=== PATIENT | female | born 1945 | race Caucasian/White ===

== ENCOUNTER 2020-02-16 10:11 | Inpatient (IN) | payer MEDICARE ==
[~2020-02-16] VITALS: Ht 152.4 cm; Wt 86.6 kg
[2020-02-16] VITALS (7 sets, daily range): BP systolic 152–177; BP diastolic 37–132
[2020-02-16] MEDS ORDERED: TOPROL XL50 MG PO (10:24)
[2020-02-16] MEDS ORDERED: ESTRACE1 MG PO (10:24)
[2020-02-16] MEDS ORDERED: METOPROLOL SUC100 MG PO (10:25)
[2020-02-16] MEDS ORDERED: GLUCOPHAGE500 MG PO (10:25)
[2020-02-16] MEDS ORDERED: ZESTRIL20 MG PO (10:25)
[2020-02-16] MEDS ORDERED: ZOCOR20 MG PO (10:25)
[2020-02-16] MEDS ORDERED: NEURONTIN100 MG PO (10:25)
[2020-02-16] MEDS ORDERED: VITAMIN D21250 MCG PO (10:26)
[2020-02-16] MEDS ORDERED: ZYRTEC10 M4 PO (10:27)
[2020-02-16] MEDS ORDERED: FISH OIL 1,0001 EAC9 PO (10:27)
[2020-02-16] MEDS ORDERED: CHILDREN'S ASPI81 M1 PO (10:27)
[2020-02-16] MEDS ORDERED: DIUREX WATER P1 EACH PO (10:27)
[2020-02-16] MEDS ORDERED: VITAMIN B COMP1 EACH PO (10:27)
[2020-02-16] MEDS ORDERED: NEXIUM20 MG PO (10:27)
[2020-02-16] MEDS ORDERED: TURMERIC500 M2 PO (10:28)
[2020-02-16] MEDS ORDERED: MAG PO (10:29)
[2020-02-16] MEDS ORDERED: GLUCOSAMINE PO (10:29)
[2020-02-16] MEDS ORDERED: CHON PO (10:29)
[2020-02-16 10:43] LABS: ABSOLUTE BASOPHILS 0.1 thou/uL (0.0-0.2); ABSOLUTE EOSINOPHILS 0.3 thou/uL (0.0-0.7); ABSOLUTE LYMPHOCYTES 1.8 thou/uL (0.8-5.3); ABSOLUTE MONOCYTES 0.4 thou/uL (0.0-1.2); EOSINOPHILS 3.9 %; HEMATOCRIT 31.3 % (37.0-47.0); HEMOGLOBIN 10.9 gm/dL (12.0-15.0); LYMPHOCYTES 24.1 %; MCH 33.6 pg (26.0-34.0); MCHC 34.9 g/dL (28.0-37.0); MCV 96.3 fL (80.0-100.0); MONOCYTES 5.2 %; MPV 6.8 fl. (7.2-11.1); NUCLEATED RBCS 0 /100WBC; PLATELET COUNT* 292 thou/uL (150-400); POLYS 65.8 %; RBC 3.25 mil/uL (4.20-5.00); RDW-CV 12.7 % (10.5-14.5); WBC 7.6 thou/uL (4.0-11.0)
[2020-02-16 10:54] LABS: CALCIUM 8.8 mg/dL (8.5-10.1); CREATININE 1.4 mg/dL (0.6-1.3); POTASSIUM 4.5 mmol/L (3.5-5.1)
[2020-02-16 10:55] LABS: PROTIME 10.2 Seconds (9.20-11.50)
[2020-02-16 10:59] LABS: TOTAL BILIRUBIN 0.3 mg/dL (<0.1-1.0); TOTAL PROTEIN 7.2 g/dL (6.4-8.2)
--- NOTE | 2020-02-16 17:00 | 2DMMODE ---
[place] [address] 2 D/M-MODE ECHOCARDIOGRAM Name: SMITHAANTHONY E Room: [address] IN [facility]#: [id number] Admission: 02/16/20 Attend Phys: Arthur Harding, Discharge: Date of : 45 Date of Service: 02/16/20 1700 Report #: [id number] THIS REPORT FOR: cc: Max Cruz MD, Austin T. MD Liston, Michael J. MD [facility] ~ APPROVED REPORT Study performed: 02/16/2020 15:28:44 EXAM: Comprehensive 2D, Doppler, and color-flow Echocardiogram Patient Location: In-Patient Room #: [facility] Status: routine BSA: 1.81 HR: 71 bpm BP: 161/47 mmHg Rhythm: NSR Other Information Study Quality: Good Indications CVA/TIA Echo Enhancing Agent Indication: Rule out Shunt Agent(s) / Amount(s) Used: Agitated Saline 10 cc 2D Dimensions IVSd: 12.47 (7-11mm) LVOT Diam: 19.99 (18-24mm) LVDd: 45.98 mm PWd: 11.32 (7-11mm) Ascending Ao: 32.28 (22-36mm) LVDs: 26.76 (25-40mm) Aortic Root: 28.15 mm Volumes Left Atrial Volume (Systole) LA ESV Index: 36.70 mL/m2 Aortic Valve AoV Peak Giovani.: 1.68 m/s AO Peak Gr.: 11.25 mmHg LVOT Max P.48 mmHg AO Mean Gr.: 5.59 mmHg LVOT Mean P.46 [place] [address] 2 D/M-MODE ECHOCARDIOGRAM Name: ANTHONY BONE Room: [address] IN ..#: [id number] Admission: 02/16/20 Attend Phys: Arthur Harding, Discharge: Date of : 45 Date of Service: 02/16/20 1700 Report #: [id number] LVOT Max V: 1.17 m/s AO V2 VTI: 34.90 cm LVOT Mean V: 0.72 m/s ZABRINA (VTI): 2.31 cm2 LVOT V1 VTI: 25.64 cm AI Charles: 2.86 m/s2 AI PHT: 416.81 ms Mitral Valve E/A Ratio: 1.07 MV Decel. Time: 188.55 ms MV E Max Giovani.: 0.93 m/s MV PHT: 54.68 ms MVA (PHT): 4.02 cm2 TDI E/Lateral E': 7.75 E/Medial E': 10.33 Medial E' Goivani.: 0.09 m/s Lateral E' Giovani.: 0.12 m/s Pulmonary Valve PV Peak Giovani.: 0.81 m/s PV Peak Gr.: 2.62 mmHg Tricuspid Valve RAP Estimate: 5.00 mmHg TR Peak Gr.: 28.50 mmHg RVSP: 33.00 mmHg PA Pressure: 33.00 mmHg Left Ventricle The left ventricle is normal size. There is normal LV segmental wall motion. Mild concentric left ventricular hypertrophy. Left ventricular systolic function is normal. LVEF is 60-65%. Transmitral Doppler flow pattern suggests impaired LV relaxation. Right Ventricle The right ventricle is normal size. The right ventricular systolic function is normal. Atria Left atrium is mildly dilated. The interatrial septum is intact with no evidence for an atrial septal defect. The right atrium size is normal. Aortic Valve The aortic valve is normal in structure. Moderate aortic regurgitation. There is no aortic valvular stenosis[place] [address] 2 D/M-MODE ECHOCARDIOGRAM Name: ANTHONY BONE Room: [address] IN [facility]#: [id number] Admission: 02/16/20 Attend Phys: Arthur Harding, Discharge: Date of : 45 Date of Service: 02/16/20 1700 Report #: [id number] The mitral valve is normal in structure. Moderate mitral regurgitation. No evidence of mitral valve stenosis. Tricuspid Valve The tricuspid valve is normal in structure. Trace tricuspid regurgitation. The RVSP is 30-35 mmHg. Pulmonic Valve The pulmonary valve is normal in structure. There is no pulmonic valvular regurgitation. Great Vessels The aortic root is normal in size. IVC is normal in size and collapses >50% with inspiration. Pericardium There is no pericardial effusion. <Conclusion> The left ventricle is normal size. Mild concentric left ventricular hypertrophy. Left ventricular systolic function is normal. LVEF is 60-65%. Transmitral Doppler flow pattern suggests impaired LV relaxation. Left atrium is mildly dilated. Moderate aortic regurgitation. Moderate mitral regurgitation. Trace tricuspid regurgitation. The RVSP is 30-35 mmHg. IVC is normal in size and collapses >50% with inspiration. <ELECTRONICALLY SIGNED> By: Adiel Chaidez MD, FACC 02/16/201699 99 99 Adiel Chaidez MD, FACC /INF
--- NOTE | 2020-02-16 17:01 | EKG ---
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
--- NOTE | 2020-02-16 18:46 | CON ---
[address] [address] CONSULTATION Name: ANTHONY BONE Room: [address] IN M.R.#: [id number] Admission: 02/16/20 Attend Phys: Arthur Harding MD Discharge: Date of : 45 Report #: [id number] THIS REPORT FOR: //name// cc: Max Cruz MD, Austin T. MD ~ THIS REPORT FOR: //name// CC: Arthur Cruz DATE OF SERVICE: 02/16/2020 HISTORY OF PRESENT ILLNESS: This is a 74-year-old female patient who was seen by me to determine any neurological etiology for the patient's dizziness. She gives a history that dizziness started spontaneously. If she moves her neck, the dizziness is worse. She had another episode about 2 weeks ago with a similar dizziness. That is resolved by itself. She was supposed to have an MRI and MRA as an outpatient. REVIEW OF SYSTEMS: Positive for borderline diabetes and she takes metformin. She has a history of spastic colon. She denies any depression and anxiety, but some of the records indicates she does that. She has a history of tonsillectomy, , pneumonia, hysterectomy, bladder repair and question of migraine headache. She denies any stroke. She does not have any new eye, ENT, cardiac, respiratory, GI, , musculoskeletal, constitutional, dermatological, hematological, psychiatric, throat or allergic symptom associated with present symptomatology. PAST MEDICAL HISTORY: Positive for similar episode of dizziness. FAMILY HISTORY: Unremarkable. SOCIAL HISTORY: She does not drink any alcohol on a regular basis. PHYSICAL EXAMINATION: Indicate she is alert, responsive, able to follow simple and complex command. Her speech, concentration, fund of knowledge and memory is unremarkable. Cranial nerve examination 2-12 looks unremarkable. I could not have a good look at the patient's fundus. Her reflexes are somewhat diminished. Strength and sensation are symmetrical. Position sense is present. She says she feels touch somewhat different on the left side. Pulses are palpable. There is no edema, cyanosis or jaundice. Cardiorespiratory examination is unremarkable. Vision and hearing is adequate. Blood pressure is 161/47, respirations 17, pulse is 66, temperature is 98. LABORATORY DATA: White count is 7.6 and GFR is low [place] 37. [place] [address] CONSULTATION Name: ANTHONY BONE Room: [address]#: [id number] Admission: 02/16/20 Attend Phys: Arthur Harding MD Discharge: Date of : 45 Report #: [id number] IMPRESSION: This dizziness is most likely ENT in etiology. However, neurological etiology need to be excluded in this patient. We will check an MRI in this patient. If MRI shows some etiology for dizziness in the brain, we will treat accordingly otherwise, she will need an ENT physician to look at her, which unfortunately nobody comes here. I discussed all of it with the patient and she wants to follow this plan. Thank you very much for this referral. Dr. Sandoval will follow up this patient with you from tomorrow. <ELECTRONICALLY SIGNED> By: Vasyl Antoine MD 02/16/20 1846 [id number] [id number] Antoine MD /nt
[2020-02-17] VITALS: BP 135/45
[2020-02-17 03:06] LABS: GLYCOHEMOGLOBIN (HGB A1C) 5.6 % (4.8-5.6)
[2020-02-17 04:00] VITALS: BP 127/45
[2020-02-17 05:38] LABS: ABSOLUTE BASOPHILS 0.1 thou/uL (0.0-0.2); ABSOLUTE EOSINOPHILS 0.6 thou/uL (0.0-0.7); ABSOLUTE LYMPHOCYTES 2.8 thou/uL (0.8-5.3); ABSOLUTE MONOCYTES 0.5 thou/uL (0.0-1.2); ABSOLUTE NEUTROPHILS 4.3 thou/uL (1.6-8.1); BASOPHILS 0.8 %; EOSINOPHILS 6.8 %; HEMATOCRIT 26.9 % (37.0-47.0); HEMOGLOBIN 9.5 gm/dL (12.0-15.0); LYMPHOCYTES 34.4 %; MCH 33.8 pg (26.0-34.0); MCHC 35.3 g/dL (28.0-37.0); MCV 95.7 fL (80.0-100.0); MONOCYTES 6.6 %; MPV 6.7 fl. (7.2-11.1); NUCLEATED RBCS 0 /100WBC; PLATELET COUNT* 247 thou/uL (150-400); POLYS 51.4 %; RBC 2.82 mil/uL (4.20-5.00); RDW-CV 12.7 % (10.5-14.5); WBC 8.3 thou/uL (4.0-11.0)
[2020-02-17 06:07] LABS: ALBUMIN 2.5 g/dL (3.4-5.0); ALKALINE PHOSPHATASE 61 U/L (46-116); ANION GAP 5 mmol/L (7-16); BUN 18 mg/dL (7-18); CALCIUM 8.1 mg/dL (8.5-10.1); CHLORIDE 105 mmol/L (98-107); CHOLESTEROL 156 mg/dL (<200); CO2 27 mmol/L (21-32); CREATININE 1.3 mg/dL (0.6-1.3); GLUCOSE 100 mg/dL (70-99); HDL CHOLESTEROL 50 mg/dL (>40); LDL CHOLESTEROL 66 mg/dL (<100); POTASSIUM 4.3 mmol/L (3.5-5.1); SERUM ASSESSMENT Clear; SGOT 12 U/L (15-37); SGPT 14 U/L (30-65); SODIUM 137 mmol/L (136-145); TC:HDL 3.1 Ratio (Not establshd); TOTAL BILIRUBIN 0.3 mg/dL (<0.1-1.0); TOTAL PROTEIN 6.1 g/dL (6.4-8.2); TRIGLYCERIDE 202 mg/dL (<150); VLDL 40 mg/dL (<40)
[2020-02-17 08:23] VITALS: BP 194/62
[2020-02-17 12:00] VITALS: BP 116/65
[2020-02-17] MEDS ORDERED: TYLENOL PM EX-1 EACH PO (13:29)
[2020-02-17 16:00] VITALS: BP 148/50
[2020-02-17 20:29] VITALS: BP 148/43
[2020-02-18] VITALS (7 sets, daily range): BP systolic 106–145; BP diastolic 39–59
[2020-02-18 04:05] LABS: ABSOLUTE EOSINOPHILS 0.6 thou/uL (0.0-0.7); ABSOLUTE LYMPHOCYTES 3.6 thou/uL (0.8-5.3); ABSOLUTE MONOCYTES 0.6 thou/uL (0.0-1.2); ABSOLUTE NEUTROPHILS 3.5 thou/uL (1.6-8.1); BASOPHILS 0.3 %; EOSINOPHILS 7.6 %; HEMATOCRIT 26.6 % (37.0-47.0); HEMOGLOBIN 9.4 gm/dL (12.0-15.0); LYMPHOCYTES 42.9 %; MCHC 35.4 g/dL (28.0-37.0); MCV 95.9 fL (80.0-100.0); MONOCYTES 6.7 %; MPV 7.2 fl. (7.2-11.1); NUCLEATED RBCS 0 /100WBC; PLATELET COUNT* 252 thou/uL (150-400); POLYS 42.5 %; RBC 2.77 mil/uL (4.20-5.00); RDW-CV 12.7 % (10.5-14.5); WBC 8.3 thou/uL (4.0-11.0)
[2020-02-18 05:31] LABS: CALCIUM 8.3 mg/dL (8.5-10.1); CREATININE 1.4 mg/dL (0.6-1.3); POTASSIUM 4.2 mmol/L (3.5-5.1)
[2020-02-18 07:35] LABS: GLYCOHEMOGLOBIN (HGB A1C) 5.5 % (4.8-5.6)
[2020-02-18 17:34] LABS: URINE BILIRUBIN NEGATIVE (Negative); URINE BLOOD NEGATIVE (Negative); URINE CLARITY CLEAR; URINE COLOR YELLOW; URINE GLUCOSE-RANDOM NEGATIVE (Negative); URINE KETONES NEGATIVE (Negative); URINE LEUKOCYTES 2+ (Negative); URINE NITRITE NEGATIVE (Negative); URINE PROTEIN NEGATIVE (Negative); URINE UROBILINOGEN 0.2 E.U./dl (0.2-1.0)
[2020-02-18 17:40] LABS: SQUAMOUS >10 Many /LPF (0-3)
[2020-02-18 17:41] LABS: URINE WBC 6-15 Few /HPF (0-5)
[2020-02-18 17:42] LABS: BACTERIA >30 Many /HPF (None Seen); CASTS None Seen /LPF (None Seen); CRYSTALS None Seen /LPF (None Seen); MUCUS 0-3 Light strn/LPF (None Seen); URINE RBC 0-2 Rare /HPF (0-2)
[2020-02-19 01:10] VITALS: BP 109/43
[2020-02-19 04:00] VITALS: BP 114/34
[2020-02-19 08:00] VITALS: BP 155/62
[2020-02-19 12:59] VITALS: BP 139/40
[2020-02-19] MEDS ORDERED: LIPITOR40 MG PO (13:14)
[2020-02-19] MEDS ORDERED: ASPIRIN EC325 M1 PO (13:14)
[2020-02-19 13:54] VITALS: BP 139/40
== END 2020-02-19 14:20 | disposition home or self-care (01) | DRG 68 ==
LOC: M.ERS 10:11 → M.2W 11:22 → M.TBA-ER 11:22 → M.2W 12:45
PROVIDERS: Emergency Medicine Emergency Medical Services; Internal Medicine; ADMIT Internal Medicine; ATTEND Internal Medicine
DX: I65.23 Occlusion and stenosis of bilateral carotid arteries (principal); E44.0 Moderate protein-calorie malnutrition; G43.109 Migraine with aura, not intractable, without status migrainosus; I16.0 Hypertensive urgency; D64.9 Anemia, unspecified; N18.3 Chronic kidney disease, stage 3 (moderate); I12.9 Hypertensive chronic kidney disease with stage 1 through stage 4 chronic kidney disease, or unspecified chronic kidney disease; I35.1 Nonrheumatic aortic (valve) insufficiency; K21.9 Gastro-esophageal reflux disease without esophagitis; H53.8 Other visual disturbances; F32.9 Major depressive disorder, single episode, unspecified; Z20.828 Contact with and (suspected) exposure to other viral communicable diseases; F41.9 Anxiety disorder, unspecified; E78.5 Hyperlipidemia, unspecified; Z79.899 Other long term (current) drug therapy; Z79.82 Long term (current) use of aspirin; Z88.5 Allergy status to narcotic agent; Z88.0 Allergy status to penicillin; Z91.09 Other allergy status, other than to drugs and biological substances; Z90.89 Acquired absence of other organs; Z87.01 Personal history of pneumonia (recurrent); Z90.710 Acquired absence of both cervix and uterus; Z68.37 Body mass index [BMI] 37.0-37.9, adult

== ENCOUNTER 2020-02-21 09:31 | Emergency (ER) | payer MEDICARE ==
[~2020-02-21] VITALS: Ht 152.4 cm; Wt 83.0 kg
[~2020-02-21 09:31] MED LIST: ASPIRIN EC325 M1 PO; CHILDREN'S ASPI81 M1 PO; CHON PO; DIUREX WATER P1 EACH PO; ESTRACE1 MG PO; FISH OIL 1,0001 EAC9 PO; GLUCOPHAGE500 MG PO; GLUCOSAMINE PO; LIPITOR40 MG PO; MAG PO; METOPROLOL SUC100 MG PO; NEURONTIN100 MG PO; NEXIUM20 MG PO; TOPROL XL50 MG PO; TURMERIC500 M2 PO; TYLENOL PM EX-1 EACH PO; VITAMIN B COMP1 EACH PO; VITAMIN D21250 MCG PO; ZESTRIL20 MG PO; ZOCOR20 MG PO; ZYRTEC10 M4 PO
[2020-02-21 10:39] LABS: ABSOLUTE BASOPHILS 0.1 thou/uL (0.0-0.2); ABSOLUTE EOSINOPHILS 0.3 thou/uL (0.0-0.7); ABSOLUTE LYMPHOCYTES 2.6 thou/uL (0.8-5.3); ABSOLUTE MONOCYTES 0.9 thou/uL (0.0-1.2); ABSOLUTE NEUTROPHILS 7.1 thou/uL (1.6-8.1); BASOPHILS 1.2 %; EOSINOPHILS 3.1 %; HEMATOCRIT 30.7 % (37.0-47.0); HEMOGLOBIN 10.9 gm/dL (12.0-15.0); LYMPHOCYTES 23.6 %; MCH 34.4 pg (26.0-34.0); MCHC 35.5 g/dL (28.0-37.0); MPV 7.1 fl. (7.2-11.1); NUCLEATED RBCS 0 /100WBC; PLATELET COUNT* 297 thou/uL (150-400); POLYS 64.1 %; RBC 3.17 mil/uL (4.20-5.00); RDW-CV 12.8 % (10.5-14.5); WBC 11.1 thou/uL (4.0-11.0)
[2020-02-21 10:48] LABS: CALCIUM 8.7 mg/dL (8.5-10.1); CREATININE 1.5 mg/dL (0.6-1.3)
[2020-02-21 10:53] LABS: TOTAL BILIRUBIN 0.4 mg/dL (<0.1-1.0); TOTAL PROTEIN 7.1 g/dL (6.4-8.2)
[2020-02-21] MEDS ORDERED: DOXYCYCLINE 10100 MG PO (12:04)
[2020-02-21] MEDS ORDERED: NABUMETONE 750750 M1 PO (12:04)
[2020-02-21 12:22] LABS: APTT 25.1 Seconds (25.0-31.3); PROTIME 9.9 Seconds (9.20-11.50)
[2020-02-21 12:35] VITALS: BP 135/34
== END 2020-02-21 12:36 | disposition home or self-care (01) ==
LOC: M.ERS 09:31
PROVIDERS: Nurse Practitioner Family
DX: I80.8 Phlebitis and thrombophlebitis of other sites (principal); I10 Essential (primary) hypertension; K21.9 Gastro-esophageal reflux disease without esophagitis; G43.909 Migraine, unspecified, not intractable, without status migrainosus; E78.5 Hyperlipidemia, unspecified; Z90.89 Acquired absence of other organs; Z98.890 Other specified postprocedural states; Z87.01 Personal history of pneumonia (recurrent); Z90.710 Acquired absence of both cervix and uterus; Z88.5 Allergy status to narcotic agent; Z88.2 Allergy status to sulfonamides; Z88.0 Allergy status to penicillin; Z88.8 Allergy status to other drugs, medicaments and biological substances